=== PATIENT | male | born 1975 | race Caucasian/White ===

== ENCOUNTER 2020-06-26 07:50 | Day surgery (SDC) | payer OTHER ==
[2020-06-19 15:46] VITALS: BMI 44.9
[2020-06-26] MEDS ORDERED: LIDOCAINE HCL/PF 2% SDV 5ML VIAL ONE (07:57)
[2020-06-26] MEDS ORDERED: PROPOFOL 20 ML ONE ×3 (07:57)
[2020-06-26] MEDS ORDERED: MIDAZOLAM HCL 2 MG/2 ML SINGLE DOSE VIAL ONE (08:57)
[2020-06-26 09:50] VITALS: BP 123/75; PULSE 78; TEMP 97.9
--- NOTE | 2020-06-28 13:32 | PATH ---
Surgical Pathology Report Patient Name: MOLLY DAVID [facility]. Rec. #: [id number] /Age/Gender: 1975 (Age: 44) / M Account: [id number] Location: [facility] Taken: 06/26/2020 Received: 06/26/2020 Reported: 06/28/2020 Physicians: Scott Mcclure M.D. Specimen(s) Received A: SECOND PORTION DUODENUM B: ANTRUM Clinical History GERD, preop for bariatric surgery Postoperative diagnosis: Gastritis, Lap band Final Diagnosis A. SECOND PORTION DUODENUM, BIOPSY: DUODENAL MUCOSA SHOWING FOCAL DILATION OF LYMPHATIC VESSEL IN THE LAMINA PROPRIA. NO HISTOLOGIC EVIDENCE OF INTRAEPITHELIAL LYMPHOCYTOSIS. B. GASTRIC ANTRUM, BIOPSY: GASTRIC MUCOSA WITH CHRONIC GASTRITIS. IMMUNOSTAIN FOR H. PYLORI IS NEGATIVE. NEGATIVE FOR INTESTINAL METAPLASIA. Electronically Signed Antionette Chapman M.D. Gross Description A. Received in formalin, labeled "biopsy second portion duodenum" are 2 chen, irregular portions of soft tissue measuring 0.1 and 0.3 cm. in greatest dimension. The specimens are submitted in toto in one cassette. B. Received in formalin, labeled "biopsy gastric antrum" is a chen, irregular portion of soft tissue measuring 0.4 cm. in greatest dimension. The specimen is submitted in toto in one cassette. 06/27/2020 [facility]06/27/2020
== END 2020-06-26 09:50 | disposition home or self-care (01) ==
LOC: FASU-ENDO 07:50
PROVIDERS: ATTEND Internal Medicine Gastroenterology
PROC: 0DB68ZX Excision of Stomach, Via Natural or Artificial Opening Endoscopic, Diagnostic (ICD-10-PCS; 2020-06-26)
PROC: 0DB98ZX Excision of Duodenum, Via Natural or Artificial Opening Endoscopic, Diagnostic (ICD-10-PCS; principal; 2020-06-26 08:58)
DX: Z01.818 Encounter for other preprocedural examination (principal); K29.50 Unspecified chronic gastritis without bleeding; K31.9 Disease of stomach and duodenum, unspecified; R12 Heartburn
CPT/HCPCS: 82962; 88305-TC; 88342-TC